=== PATIENT | male | born 2000 | race Caucasian/White ===

== ENCOUNTER 2021-02-07 20:19 | Emergency (ER) | payer OTHER ==
[~2021-02-07] VITALS: Ht 188 cm; Wt 108.9 kg
[2021-02-07 20:22] VITALS: BP 132/94
[2021-02-07] MEDS ORDERED: MOBIC15 MG PO (20:45)
== END 2021-02-07 20:54 | disposition home or self-care (01) ==
LOC: M.ERS 20:19
DX: G43.009 Migraine without aura, not intractable, without status migrainosus (principal)